=== PATIENT | female | born 1960 | race Caucasian/White ===

== ENCOUNTER → 2016-12-12 | Outpatient (CLI) | payer BC ==
[~2016-12-12] MED LIST: ATIVAN 1MG T1 MG/TAB PO; LIORESAL 1010 MG/TAB PO; PRILOSEC 20MG20 MG PO
== END ==
LOC: MC.RAD 12-05 09:40
DX: Z12.31 Encounter for screening mammogram for malignant neoplasm of breast (principal)

== ENCOUNTER → 2018-06-27 | Outpatient (CLI) | payer BC ==
[~2018-06-27] MED LIST changes: +ATIVAN 0.50.5 MG/TAB PO; +LEVOXYL0.1 MG PO; +NATURAL IRON65 MG; +REQUIP0.25 MG PO
== END ==
LOC: COL.RAD 07:40
DX: C79.51 Secondary malignant neoplasm of bone (principal); C78.00 Secondary malignant neoplasm of unspecified lung; K76.6 Portal hypertension; R59.0 Localized enlarged lymph nodes; R16.2 Hepatomegaly with splenomegaly, not elsewhere classified; R94.5 Abnormal results of liver function studies
CPT/HCPCS: Q9967

== ENCOUNTER → 2018-07-04 | Outpatient (CLI) | payer BC ==
--- NOTE | 2018-07-03 08:09 | NUR ---
CALLED AND LEFT MSG FOR PT TO CALL BACK TO VERIFY ALLERGIES, MEDS AND PMH. LEFT CALL BACK NUMBER
[2018-07-04] VITALS (9 sets, daily range): BP systolic 110–161; BP diastolic 58–83; PULSE 72–108
[~2018-07-04] VITALS: Ht 162.6 cm; Wt 69.0 kg
[2018-07-04 13:00] LABS: INR 1.2 (0.8-3.0); PROTHROMBIN TIME 13.1 SECONDS (9.7-12.8)
--- NOTE | 2018-07-04 13:05 | NUR ---
pt assisted to CT scanner bench, Dr Villatoro in room
--- NOTE | 2018-07-04 13:20 | NUR ---
liver tissue samples obtained, put in formulin, bandaid over site, assisted pt to w/c, speciman to lab
--- NOTE | 2018-07-04 15:20 | NUR ---
pt discharged via own w/c to car with family member
== END ==
LOC: COL.RAD 11:44
PROVIDERS: Radiology Diagnostic Radiology
DX: C80.1 Malignant (primary) neoplasm, unspecified (principal); R16.0 Hepatomegaly, not elsewhere classified

== ENCOUNTER 2018-07-06 18:05 | Inpatient (IN) | payer BC ==
[~2018-07-06] VITALS: Ht 162.6 cm; Wt 69.8 kg
[2018-07-06 19:02] LABS: BASO % 0.2 % (0.0-2.0); EOS % 0.2 % (0-4.0); GRAN # 4.6 (1.4-6.5); GRAN % 78.5 % (42.2-75.2); HEMOGLOBIN 10.2 g/dl (12.5-16.0); LYMPH # 0.9 (1.2-3.4); LYMPH % 14.6 % (20.0-51.0); MEAN CELL VOLUME 77 fl (80.0-100.0); MEAN CORPUSCULAR HEMOGLOBIN 23 pg (27.0-31.0); MEAN CORPUSCULAR HGB CONC 30 g/dl (33.0-37.0); MEAN PLATELET VOLUME 11.3 fl (7.4-10.4); MONO # 0.4 (0.1-0.6); MONO % 6.3 % (1.7-9.3); PLATELET COUNT 132 K/mm3 (130-400); RED BLOOD COUNT 4.39 M/mm3 (4.10-5.30); REDCELL DISTRIBUTION WIDTH-CV 20.8 % (11.5-14.5)
[2018-07-06 19:07] LABS: HEMATOCRIT 33.6 % (37.0-47.0)
[2018-07-06 19:14] LABS: BILIRUBIN,TOTAL 1.7 mg/dL (0.0-1.0); CALCIUM 12.3 mg/dL (8.4-10.2); CREATININE, serum 0.73 mg/dL (0.52-1.25); POTASSIUM 4.2 mmol/L (3.4-5.0); TOTAL PROTEIN 7.6 gm/dL (6.4-8.2)
[2018-07-06 19:24] LABS: COLLECTION METHOD CATHETER
[2018-07-06 19:30] LABS: MUCOUS Present /lpf; PH 5 (5-8); SQUAMOUS EPITHELIAL None Seen /hpf; URINE APPEARANCE Clear; URINE BACTERIA None Seen /hpf; URINE BILIRUBIN Negative (NEGATIVE); URINE BLOOD Negative (NEGATIVE); URINE COLOR Amber; URINE GLUCOSE Negative (NEGATIVE); URINE KETONE Trace (NEGATIVE); URINE LEUKOCYTE ESTERASE Negative (NEGATIVE); URINE NITRATE Negative (NEGATIVE); URINE PROTEIN(semi-quant) Negative (NEGATIVE); URINE RBC 0-2 /hpf; URINE UROBILINOGEN >=4.0 mg/dL (NEGATIVE)
[2018-07-06 23:12] VITALS: BP 140/71; PULSE 104; TEMP 98.1
[2018-07-07 04:29] VITALS: BP 119/48; PULSE 106
--- NOTE | 2018-07-07 05:03 | NUR ---
Pt arrived to floor from the ED, family was with Pt upon arrival. Assessments completed and documented. Pt did not sleep well during the night, she stated that she was uncomfortable and anxious, repositioned for comfort, no medications ordered as of this note. VS have been stable during the night, and she stated that her pain is decreased from earlier yesterday evening.
[2018-07-07 07:52] LABS: BASO % 0.2 % (0.0-2.0); EOS % 0.2 % (0-4.0); GRAN # 3.4 (1.4-6.5); GRAN % 76.3 % (42.2-75.2); LYMPH # 0.7 (1.2-3.4); LYMPH % 14.8 % (20.0-51.0); MEAN CELL VOLUME 79 fl (80.0-100.0); MEAN CORPUSCULAR HGB CONC 30 g/dl (33.0-37.0); MEAN PLATELET VOLUME 10.7 fl (7.4-10.4); MONO # 0.4 (0.1-0.6); MONO % 7.8 % (1.7-9.3); PLATELET COUNT 108 K/mm3 (130-400); RED BLOOD COUNT 3.95 M/mm3 (4.10-5.30); REDCELL DISTRIBUTION WIDTH-CV 20.8 % (11.5-14.5)
[2018-07-07 07:54] LABS: HEMOGLOBIN 9.2 g/dl (12.5-16.0); MEAN CORPUSCULAR HEMOGLOBIN 23 pg (27.0-31.0)
--- NOTE | 2018-07-07 08:00 | NUR ---
PT IN BED ON LEFT SIDE AND HOB ELEVATED TO 30 DEGREE ANGLE, DENIES PAIN AT THIS TIME. PT HAVING BOWEL MOVEMENT. PT IS INCONTINENT OF BLADDER AND BOWEL. PT A/O X4, CALL LIGHT WITHIN REACH.
[2018-07-07 08:04] VITALS: BP 121/55; PULSE 90; TEMP 100
[2018-07-07 08:07] LABS: ALBUMIN 3.5 gm/dL (3.5-5.0); BILIRUBIN,TOTAL 1.9 mg/dL (0.0-1.0); CALCIUM 11.8 mg/dL (8.4-10.2); CREATININE, serum 0.76 mg/dL (0.52-1.25); POTASSIUM 4.1 mmol/L (3.4-5.0); TOTAL PROTEIN 6.6 gm/dL (6.4-8.2)
--- NOTE | 2018-07-07 11:28 | NUR ---
First visit from the spin tank tender. No needs right now.
--- NOTE | 2018-07-07 11:29 | NUR ---
PT UP WITH PT/OT TO RECLINER. PT AMBULATED WITH WALKER AND GAIT WAS SLOW BUT STEADY. PT WAS ASKED ABOUT PAIN AND SHE STATED THAT SHE DID NOT HAVE ANY AT THIS TIME. SISTER IN ROOM WITH PT AND CALL LIGHT WITHIN REACH.
--- NOTE | 2018-07-07 12:24 | NUR ---
PT HAS FAMILY IN ROOM, HAS ANXIETY, O2 AT 97% RA, HR 122. ATIVAN GIVEN FOR ANXIETY.
--- NOTE | 2018-07-07 14:52 | NUR ---
PT WENT DOWN FOR HER BARIUM SWALLOW VIA WHEELCHAIR AND HAS RETURNED. PT NOW IN BED AND FAMILY LEFT. PT/OT IN TO WORK WITH PT. PT COOPERATIVE AND PLEASANT.
--- NOTE | 2018-07-07 15:34 | NUR ---
family meeting with siblings x3 along with Merry Soto LMSW and myself. Questions of options for care, considerations, and pt preferences were briefly discussed. Will wait until pathology report is discussed with pt by Dr Palomo including options for care or desire for comfort care can be determined.
--- NOTE | 2018-07-07 16:11 | NUR ---
utility worker attended clinical rounds and met with patient and three siblings. Patient is awaiting Dr Palomo to consult and provide biopsy results. Patient's primary care provider, Dr Narvaez, met with patient and discussed cancer diagnosis and briefly about hospice care. Patient has BCBS insurance and has money saved to pay for long-term or the hospice house, before requiring to apply for medicaid. Pamela Chau and social science instructor met with siblings, alone, and provided information on options for placement if patient has treatment opportunities or the hospice house if no treatment is available or desired by patient. Siblings state that patient is aware and feels that she will not be able to return to her apartment where she lives alone. Sister, Augusta Hardy [phone] is name as durable power of defense attorney for health care and will provide copies. Brother, Gutierrez, is also on the power of defense attorney. If long-term is desired choice 1 via [facility] [address] [facility] and 3 is [facility].
[2018-07-07 16:41] VITALS: BP 142/72; PULSE 105; TEMP 98.4
--- NOTE | 2018-07-07 18:24 | NUR ---
PT HAD AMBULATED USING ASSISTED DEVICE (WALKER) IN THE HALLS X2 ACCOMPANIED BY PHYICAL THERAPY THEN ASSISTED BACK TO BED. PT HAD AN AIR MATTRESS PLACED UNDER HER, BUT SHE STILL HAS DISCOMFORT IN LOWER BACK AND SHOULDER BLADES. PT HAS FAMILY IN ROOM AND THEY ALL DID SEE DR. JEFF, NOW THEY ARE JUST WAITING TEST TO COME BACK. PT HAS BEEN REPOSITION AND MADE COMFORTABLE MUCH POSSIBLE. PT DID NOT HAVE ANY PRN PAIN MEDICATION. PT WAS ASKED SEVERAL TIMES AND PT DECLINED. CALL LIGHT WITHIN REACH.
--- NOTE | 2018-07-07 22:30 | NUR ---
PT AMBULATED TO BATHROOM THIS HS. TOOK X2 ASSIST TO HELP PT FROM SITTING ON EDGE OF BED TO STANDING. WAS ABLE TO WALK TO AND FROM BATHROOM, PT WAS STEADY ON FEET AND TOOK TIME WITH WALKING. NO OTHER ISSUES OR CONSERNS VOICED AT THIS TIME.
[2018-07-08] VITALS (7 sets, daily range): BP systolic 122–152; BP diastolic 52–78; PULSE 96–110; TEMP 97.3–99
--- NOTE | 2018-07-08 06:30 | NUR ---
PT HAD UNEVENTFUL NOC. NO C/O PAIN. APPEARED TO HAVE SLEPT WELL. NO ISSUES OR CONSERNS VOICED OVER NOC.
[2018-07-08 07:44] LABS: BASO % 0.3 % (0.0-2.0); EOS % 0.3 % (0-4.0); GRAN # 2.5 (1.4-6.5); GRAN % 72.2 % (42.2-75.2); LYMPH # 0.6 (1.2-3.4); LYMPH % 18.7 % (20.0-51.0); MEAN CELL VOLUME 78 fl (80.0-100.0); MEAN CORPUSCULAR HGB CONC 30 g/dl (33.0-37.0); MEAN PLATELET VOLUME 10.7 fl (7.4-10.4); MONO # 0.3 (0.1-0.6); MONO % 8.2 % (1.7-9.3); PLATELET COUNT 87 K/mm3 (130-400); RED BLOOD COUNT 3.99 M/mm3 (4.10-5.30); REDCELL DISTRIBUTION WIDTH-CV 20.6 % (11.5-14.5)
[2018-07-08 07:45] LABS: HEMATOCRIT 31.1 % (37.0-47.0); HEMOGLOBIN 9.3 g/dl (12.5-16.0); MEAN CORPUSCULAR HEMOGLOBIN 23 pg (27.0-31.0)
[2018-07-08 07:50] LABS: ALBUMIN 3.2 gm/dL (3.5-5.0); BILIRUBIN,TOTAL 1.3 mg/dL (0.0-1.0); CALCIUM 10.9 mg/dL (8.4-10.2); CREATININE, serum 0.72 mg/dL (0.52-1.25); POTASSIUM 3.9 mmol/L (3.4-5.0); TOTAL PROTEIN 6.2 gm/dL (6.4-8.2)
--- NOTE | 2018-07-08 08:50 | NUR ---
Met with pt herself this morning. She has understanding that the pathology report has required further testing and will probably not be available until after tomorrow. I asked her what her goals are at this point and she was very matter of fact: "I want to work on eating and walking today". I did go over that there are many resources and facilities that may be helpful to her depending on what her goals of care are after her diagnosis and potential treatments are clarified. 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 Advised we are here to support her decisions in finding the resources that she will need as she travels her life journey. Pt expressed thanks and then began working with the speech therapist on eating.
--- NOTE | 2018-07-08 13:17 | NUR ---
PT HAS IV TO RIGHT AC WITH IVF INFUSING. PT CONSTANTLY HAS ISSUES WITH OCCLUDING IVF AND ASKED IF I COULD PLACE AN IV IN A DIFFERENT AREA TO ALLEVIATE THE ISSUE OF NOT BEING ABLE TO BEND HER ARM. 22G IV PLACED TO RIGHT INNER FOREARM PER PT'S REQUEST. IV TO RIGHT AC LEFT IN CASE OF NEED AT A LATER TIME. IVF CHANGED TO RIGHT INNER FA IV.
--- NOTE | 2018-07-08 14:24 | NUR ---
Spoke with Saima GUEVARA. Pt was advised to expect Dr Palomo after work hours tomorrow with the pathology report is recieved--per office staff after they talked with Dr Palomo. 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 She is not expecting a treatment being available that will improve the quality of her life and most likely will be looking at transition to [facility] hosp[facility]--but "doesn't want to get the cart ahead of the horse".
--- NOTE | 2018-07-08 23:37 | NUR ---
Completed medication administration and assessment; PT tolerated all cares, medications, and incontinence care; PT denied acute pain at time of assessment; PT A&Ox4, no edema at time of assessment, lungs CTAB, BS active x4 with soft ABD, HRRR; No further needs assessed or verbalized at time of exit; PT assisted to comfortable position in bed with call light within reach; Will continue to monitor. CDA
--- NOTE | 2018-07-09 04:00 | NUR ---
PT resting well in bed; no further needs assessed at time of rounds; PT continue NS at 100ml/hr to RFA IV; PT resting in comfortable position in bed with call light in reach; Will continue to monitor. CDA
[2018-07-09 04:42] VITALS: BP 128/58; PULSE 85; TEMP 97.4
[2018-07-09 06:59] LABS: BASO % 0.3 % (0.0-2.0); EOS % 1.4 % (0-4.0); GRAN # 2.1 (1.4-6.5); GRAN % 73.2 % (42.2-75.2); LYMPH # 0.5 (1.2-3.4); LYMPH % 17.1 % (20.0-51.0); MEAN CELL VOLUME 79 fl (80.0-100.0); MEAN CORPUSCULAR HGB CONC 29 g/dl (33.0-37.0); MEAN PLATELET VOLUME 10.7 fl (7.4-10.4); MONO # 0.2 (0.1-0.6); MONO % 7.7 % (1.7-9.3); PLATELET COUNT 99 K/mm3 (130-400); RED BLOOD COUNT 4.06 M/mm3 (4.10-5.30); REDCELL DISTRIBUTION WIDTH-CV 21.1 % (11.5-14.5)
[2018-07-09 07:04] LABS: HEMATOCRIT 32.1 % (37.0-47.0); HEMOGLOBIN 9.3 g/dl (12.5-16.0); MEAN CORPUSCULAR HEMOGLOBIN 23 pg (27.0-31.0)
--- NOTE | 2018-07-09 07:11 | NUR ---
Report given to SHWETHA Meehan. CDA
[2018-07-09 07:13] LABS: ALBUMIN 3.3 gm/dL (3.5-5.0); BILIRUBIN,TOTAL 1.5 mg/dL (0.0-1.0); CALCIUM 11.2 mg/dL (8.4-10.2); CREATININE, serum 0.81 mg/dL (0.52-1.25); POTASSIUM 3.7 mmol/L (3.4-5.0); TOTAL PROTEIN 6.5 gm/dL (6.4-8.2)
[2018-07-09 07:20] VITALS: BP 127/54; PULSE 89; TEMP 98.4
--- NOTE | 2018-07-09 08:00 | NUR ---
PATIENT HAVING A LOT OF TROUBLE WALKING TODAY. SHE STATES SHE IS HAVING A LOT OF PAIN IN HER BACK. ALSO COMPLAINING OF HER HIPS.
[2018-07-09 12:07] VITALS: BP 145/68; PULSE 101; TEMP 98
[2018-07-09 16:19] VITALS: BP 142/61; PULSE 104; TEMP 98.6
--- NOTE | 2018-07-09 17:42 | NUR ---
PATIENT CONTINUES TO DENY NEED FOR PAIN MEDICATION. SHE STATES SHE WOULD LIKE TO TAKE A DOSE OF PAIN MEDICINE BEFORE SHE GOES TO BED. BUT SHE IS CONTENT WITH THE LIDOCAINE PATCH AND FENTANYL PATCH AT THIS TIME.
[2018-07-09 21:07] VITALS: BP 147/70; PULSE 110; TEMP 98.3
--- NOTE | 2018-07-09 22:23 | NUR ---
Completed medication administration and assessment; PT tolerated all cares well; PT reported effective pain relief with Lidocaine patch to right side; IV NS continues to RFA IV at 100ml/hr; PT A&Ox4, LCTAB with mildly diminished bases, HRRR, abdomen flat and soft, AMB x2 asssit with bed incont care provided; PT denies further needs at time of exit; PT assisted to comfortable position in bed with call light within reach; Will continue to monitor. CDA
[2018-07-10 00:43] VITALS: BP 132/89; PULSE 103; TEMP 98.1
[2018-07-10 03:45] VITALS: BP 135/62; PULSE 91; TEMP 98.1
--- NOTE | 2018-07-10 04:05 | NUR ---
PT resting well in bed without further needs or concerns at time of rounds; Continues NS via IV at 100ml/hr; Will continue to monitor. CDA
[2018-07-10 06:28] LABS: BASO % 0.3 % (0.0-2.0); EOS % 0.3 % (0-4.0); GRAN # 2.6 (1.4-6.5); GRAN % 77.1 % (42.2-75.2); LYMPH # 0.5 (1.2-3.4); LYMPH % 14.7 % (20.0-51.0); MEAN CELL VOLUME 80 fl (80.0-100.0); MEAN CORPUSCULAR HGB CONC 29 g/dl (33.0-37.0); MEAN PLATELET VOLUME 11.3 fl (7.4-10.4); MONO # 0.3 (0.1-0.6); MONO % 7.3 % (1.7-9.3); PLATELET COUNT 94 K/mm3 (130-400); RED BLOOD COUNT 4.01 M/mm3 (4.10-5.30); REDCELL DISTRIBUTION WIDTH-CV 21.4 % (11.5-14.5)
[2018-07-10 06:29] LABS: HEMATOCRIT 32.2 % (37.0-47.0); HEMOGLOBIN 9.2 g/dl (12.5-16.0); MEAN CORPUSCULAR HEMOGLOBIN 23 pg (27.0-31.0)
[2018-07-10 06:49] LABS: ALBUMIN 3.2 gm/dL (3.5-5.0); BILIRUBIN,TOTAL 1.3 mg/dL (0.0-1.0); CALCIUM 10.8 mg/dL (8.4-10.2); CREATININE, serum 0.73 mg/dL (0.52-1.25); POTASSIUM 3.7 mmol/L (3.4-5.0); TOTAL PROTEIN 6.5 gm/dL (6.4-8.2)
--- NOTE | 2018-07-10 07:10 | NUR ---
Report given to SHEWTHA Turner. CDA
--- NOTE | 2018-07-10 08:00 | NUR ---
Patient in bed resting. Alert and oriented x 3. Shift assessment complete. Edema noted to BLE. Denies pain or furthe needs at this time.
[2018-07-10 08:05] VITALS: BP 130/62; PULSE 92; TEMP 98
[2018-07-10 11:12] VITALS: BP 146/68; PULSE 85; TEMP 98.4
[2018-07-10] MEDS ORDERED: ATIVAN 0.50.5 MG/TAB PO (11:16)
[2018-07-10] MEDS ORDERED: FENTANYL 25 MCG TD (11:16)
[2018-07-10] MEDS ORDERED: Lidocaine 4% Patch TP (11:16)
[2018-07-10] MEDS ORDERED: ULTRAM 50MG TAB50 MG PO (11:16)
[2018-07-10] MEDS ORDERED: SENNA-LAX8.6 MG PO (11:17)
[2018-07-10] MEDS ORDERED: COLACE 100100 MG/CAP PO (11:17)
--- NOTE | 2018-07-10 13:00 | NUR ---
SW attended clinical rounds to discuss discharge. Patient has decided to pursue hospice services at the [facility]. Patient will discharge today to [facility] this afternoon. DAKOTA then met with patient's flight attendant inflight services, July, and Pushpa esquivel for living will and business DPOA. Patient has written a living will. DAKOTA and July witnessed and provided copies. A copy was also placed on the chart. DAKOTA will fax discharge orders.
--- NOTE | 2018-07-10 15:00 | NUR ---
Patient discharging to hospice, family will be transporting patient. Denies pain or further needs at this time. Discontinued INT to right wrist and right forarm. Tips intact. Tolerated procedure well. Denies further needs at this time.
[2018-07-10 15:04] VITALS: BP 146/68; PULSE 85; TEMP 98.4
== END 2018-07-10 15:00 | disposition hospice, inpatient (51) | DRG 641 ==
LOC: COL.ER 18:05 → MEDICAL 20:18 → EDBEDREQ 20:38 → MEDICAL 07-08 10:34
PROVIDERS: Nurse Practitioner; Nurse Practitioner Family; Physician Assistant; ADMIT Hospitalist
DX: E87.2 Acidosis (principal); C22.0 Liver cell carcinoma; R18.0 Malignant ascites; C79.51 Secondary malignant neoplasm of bone; G11.4 Hereditary spastic paraplegia; E44.0 Moderate protein-calorie malnutrition; Z66 Do not resuscitate; Z51.5 Encounter for palliative care; C78.02 Secondary malignant neoplasm of left lung; C78.01 Secondary malignant neoplasm of right lung; R62.7 Adult failure to thrive; E83.52 Hypercalcemia; E03.9 Hypothyroidism, unspecified; D50.9 Iron deficiency anemia, unspecified; F41.9 Anxiety disorder, unspecified; K21.9 Gastro-esophageal reflux disease without esophagitis; Z68.26 Body mass index [BMI] 26.0-26.9, adult
CPT/HCPCS: 99222-AI; 99233-AI; J1650; J3010; J7030